=== PATIENT | male | born 1950 | race Hispanic/Latino ===

== ENCOUNTER 2024-12-11 15:13 | Emergency (ER) | payer MEDICARE ==
[~2024-12-11] VITALS: Ht 165.1 cm; Wt 72.6 kg
[2024-12-11 15:39] VITALS: TEMP 98.4
[2024-12-11 16:22] LABS: BASOPHILS % 0.5 % (0.0-1.0); EOSINOPHILS % 3.1 % (0.0-6.0); LYMPHOCYTES % 23.9 % (18.0-39.1); MONOCYTES % 11.6 % (4.4-11.3); NEUTROPHILS % 60.7 % (38.7-80.0); RED CELL DISTRIBUTION WIDTH 13.2 % (11.7-14.4)
[2024-12-11 16:35] LABS: INR 0.98
[2024-12-11 16:45] LABS: EST GLOMERULAR FILTRATION RATE 92.0 ML/MIN (>=60)
[2024-12-11] MEDS: SODIUM CHLORIDE 0.9% 1000ML 1,000 ML IV STA (16:51)
[2024-12-11] MEDS ORDERED: IOPAMIDOL 370 MG/ML 100 ML INFUS..BTL INJ ONE (17:00)
[2024-12-11 18:25] VITALS: PULSE 75; RESP 18
[2024-12-11 21:55] VITALS: BP 141/71; PULSE 51; RESP 18; O2SAT 98
== END 2024-12-11 21:56 | disposition home or self-care (01) ==
LOC: ER 16:16
DX: R42 Dizziness and giddiness (principal); R63.4 Abnormal weight loss; C78.02 Secondary malignant neoplasm of left lung; C78.01 Secondary malignant neoplasm of right lung; R16.1 Splenomegaly, not elsewhere classified
CPT/HCPCS: 36415; 70450; 71260; 80053; 82550; 83735; 84484; 85025; 85610; 85730; 93005; 99284; J7030; Q9967

== ENCOUNTER → 2025-02-10 | Outpatient (REF) | payer MEDICARE ==
[~2025-02-10] MED LIST: FENTANYL CITRATE/PF 100MCG/2 ML INJ ONE; MIDAZOLAM HCL 2 MG/2 ML VIAL ONE; SODIUM CHLORIDE 0.9% 250ML 250 ML ONE
[2025-02-10 08:37] LABS: BASOPHILS % 0.2 % (0.0-1.0); EOSINOPHILS % 0.4 % (0.0-6.0); LYMPHOCYTES % 22.5 % (18.0-39.1); MONOCYTES % 9.8 % (4.4-11.3); NEUTROPHILS % 66.6 % (38.7-80.0); RED CELL DISTRIBUTION WIDTH 14.2 % (11.7-14.4)
[2025-02-10 08:58] LABS: INR 0.92
== END ==
LOC: CT 07:56
PROVIDERS: ATTEND Internal Medicine Hematology & Oncology
DX: R91.8 Other nonspecific abnormal finding of lung field (principal)
CPT/HCPCS: 36415; 71250; 85025; 85610; 85730; J7050; J2250